=== PATIENT | female | born 1960 | race Caucasian/White ===

== ENCOUNTER → 2020-11-28 | Day surgery (SDC) | payer OTHER ==
[~2020-11-28] MED LIST: AMLODIPINE BESY10 MG PO; ATORVASTATIN CA20 MG PO; BASAGLAR K100 UNIT/1 SC; CELEBREX 200MG200 MG PO; DALIRESP 500500 MCG PO; ESTRACE0.5 MG PO; GABAPENTIN800 MG PO; HYDROCODON-ACE1 EAC6 PO; ISOSORBIDE DINI30 MG PO; KLONOPIN TAB 00.5 MG PO; MAGNESIUM250 M1 PO; METFORMIN HCL850 MG PO; NITROSTAT 0.40.4 MG SL; OMEPRAZOLE40 MG PO; OXYBUTYNIN PO; POTASSIUM CHLO10 ME2 PO; TOPROL XL 25 MG25 MG PO; VENTOLIN HFA 66.7 GM INH; VITAMIN D21250 MCG PO; VOLTAREN EC 7575 MG PO; WELLBUTRIN XL150 MG PO; XARELTO20 MG PO
== END | disposition home or self-care (01) ==
LOC: OR 08:30
PROVIDERS: Internal Medicine Gastroenterology
PROC: 0DB78ZX Excision of Stomach, Pylorus, Via Natural or Artificial Opening Endoscopic, Diagnostic (ICD-10-PCS; 2020-11-28)
PROC: 0DB68ZX Excision of Stomach, Via Natural or Artificial Opening Endoscopic, Diagnostic (ICD-10-PCS; 2020-11-28)
PROC: 0DB38ZX Excision of Lower Esophagus, Via Natural or Artificial Opening Endoscopic, Diagnostic (ICD-10-PCS; principal; 2020-11-28 15:00)
DX: K21.00 Gastro-esophageal reflux disease with esophagitis, without bleeding (principal); K29.50 Unspecified chronic gastritis without bleeding; K22.70 Barrett's esophagus without dysplasia; K22.8 Other specified diseases of esophagus; I11.0 Hypertensive heart disease with heart failure; I50.9 Heart failure, unspecified; J44.9 Chronic obstructive pulmonary disease, unspecified; E11.9 Type 2 diabetes mellitus without complications; Z88.0 Allergy status to penicillin; Z79.1 Long term (current) use of non-steroidal anti-inflammatories (NSAID); Z79.899 Other long term (current) drug therapy; Z91.030 Bee allergy status
CPT/HCPCS: 82962; J2704; J7040

== ENCOUNTER → 2021-01-23 | Outpatient (CLI) | payer OTHER | LOC: RAD 07:18 | DX: K22.4 Dyskinesia of esophagus (principal); K44.9 Diaphragmatic hernia without obstruction or gangrene | CPT/HCPCS: 74220 ==